=== PATIENT | female | born 1975 | race Caucasian/White ===

== ENCOUNTER 2018-05-17 15:25 | Emergency (ER) | payer MEDICAID ==
[~2018-05-17] VITALS: Ht 157.5 cm; Wt 59.0 kg
[~2018-05-17 15:25] MED LIST: IBUP-1984 PO; QUET-1 PO; SERT50TA PO
[2018-05-17 15:34] VITALS: BP 189/86
[2018-05-17] MEDS ORDERED: ondansetron/PF 4mg/2ml inj IV ONE (16:15)
[2018-05-17] MEDS ORDERED: famotidine/PF 10 mg/ml inj IV ONE (16:15)
[2018-05-17] MEDS ORDERED: ketorolac trometh. 30mg/ml inj. IV ONE (16:15)
[2018-05-17] MEDS ORDERED: normal saline 1000ml 1,000 ML IV ONE (16:15)
[2018-05-17] MEDS ORDERED: dicyclomine 10mg/ml 2ml ampule IM ONE (16:15)
[2018-05-17 16:30] LABS: BASOPHILS % (AUTO) 0.5 % (0-1); EOSINOPHILS # (AUTO) 0.2 X10'3 (0-0.9); EOSINOPHILS % (AUTO) 3.6 % (0-6); HEMATOCRIT 37.3 % (35.0-45.0); HEMOGLOBIN 12.9 g/dl (12.0-16.0); LYMPHOCYTES % (AUTO) 33.1 % (21-51); MEAN CORPUSCULAR HEMOGLOBIN 31.1 PG (27.0-31.0); MEAN CORPUSCULAR HGB CONC 34.6 % (33.0-36.5); MEAN PLATELET VOLUME 8.5 FL (7.4-10.4); MONOCYTES # (AUTO) 0.3 X10'3 (0-0.9); MONOCYTES % (AUTO) 5.2 % (2-12); NEUTROPHILS # (AUTO) 3.4 X10'3 (1.8-7.7); NEUTROPHILS % (AUTO) 57.6 % (42-75); PLATELET COUNT 283 X10'3 (140-440); RED BLOOD COUNT 4.14 X10'6 (4.20-5.60); RED CELL DISTRIBUTION WIDTH 15.1 % (11.5-14.5); WHITE BLOOD COUNT 5.9 X10'3 (4.5-11.0)
[2018-05-17 16:45] LABS: ALANINE AMINOTRANSFERASE 36 U/L (12-78); ALBUMIN 3.6 G/DL (3.4-5.0); ALBUMIN/GLOBULIN RATIO 0.9 (1.1-1.5); ALKALINE PHOSPHATASE 86 IU/L (46-116); ANION GAP 15 (8-16); ASPARTATE AMINO TRANSFERASE 39 U/L (10-37); BILIRUBIN,TOTAL 0.6 MG/DL (0.1-1.0); BLOOD UREA NITROGEN 14 MG/DL (7-18); BUN/CREATININE RATIO 15.2 (6.6-38.0); CALCIUM 8.5 MG/DL (8.5-10.1); CHLORIDE 104 MMOL/L (99-107); CREATININE 0.92 MG/DL (0.40-0.90); GLUCOSE 135 MG/DL (70-104); LIPASE 50 U/L (73-393); MAGNESIUM 1.7 MG/DL (1.5-2.4); POTASSIUM 3.1 MMOL/L (3.5-5.1); SODIUM 140 MMOL/L (135-145); TOTAL CARBON DIOXIDE 21.4 MMOL/L (24-32); TOTAL PROTEIN 7.5 G/DL (6.4-8.2); eGFR 67 ML/MIN
[2018-05-17 17:28] LABS: URINE HCG NEGATIVE (NEG)
[2018-05-17 17:33] LABS: CLARITY,URINE SLIGHTLY CLOUDY (Clear); COLOR,URINE YELLOW (Yellow); GLUCOSE, URINE NEGATIVE (Neg); KETONES,URINE NEGATIVE (Neg); LEUKOCYTE ESTERASE ,URINE TRACE (Neg); NITRITES, URINE POSITIVE (Neg); OCCULT BLOOD,URINE TRACE-LYSED (Neg); PROTEIN,URINE NEGATIVE (Neg); UROBILINOGEN,URINE 0.2 E.U/dL (0.2-1.0)
[2018-05-17 17:52] LABS: UA COLLECTION TYPE CLN CATCH MIDSTREAM
[2018-05-17 17:56] LABS: BACTERIA,URINE 4+ /HPF (Neg); RBC,URINE 0-2 /HPF (0-2); SQUAMOUS EPITHELIAL CELL,UR MODERATE /LPF (FEW)
[2018-05-17] MEDS ORDERED: morphine ER 15mg tablet PO SCH (17:58)
[2018-05-17] MEDS ORDERED: CEPH-572 PO (18:01)
[2018-05-17] MEDS ORDERED: TRAM50TA2 PO (18:01)
[2018-05-17] MEDS ORDERED: CEPH500C5 PO (18:01)
[2018-05-17] MEDS ORDERED: DICY10CA88 PO (18:01)
== END 2018-05-17 18:42 | disposition home or self-care (01) ==
LOC: ER 15:26
DX: K52.9 Noninfective gastroenteritis and colitis, unspecified (principal); E87.6 Hypokalemia; N39.0 Urinary tract infection, site not specified; R10.84 Generalized abdominal pain; F12.90 Cannabis use, unspecified, uncomplicated; F15.90 Other stimulant use, unspecified, uncomplicated; Z56.0 Unemployment, unspecified; Z88.1 Allergy status to other antibiotic agents; Z79.899 Other long term (current) drug therapy
CPT/HCPCS: 36415; 80053; 81001; 81025; 83690; 83735; 85025; 87077; 87088; 87186; 96361; 96372; 96374; 96375; 99284; J0500; J1885; J2405; J3490

== ENCOUNTER 2018-06-30 07:09 | Emergency (ER) | payer MEDICAID ==
[~2018-06-30] VITALS: Ht 157.5 cm; Wt 59.1 kg
[~2018-06-30 07:09] MED LIST changes: +CEPH500C5 PO
[2018-06-30] MEDS ORDERED: pantoprazole 40 MG vial IV ONE (07:20)
[2018-06-30] MEDS ORDERED: ondansetron/PF 4mg/2ml inj IV ONE ×2 (07:20→09:00)
[2018-06-30] MEDS ORDERED: famotidine/PF 10 mg/ml inj IV ONE (07:20)
[2018-06-30] MEDS ORDERED: normal saline 1000ML IV soln IVB ONE (07:20)
[2018-06-30 08:13] LABS: BASOPHILS # (AUTO) 0.1 X10'3 (0-0.2); EOSINOPHILS # (AUTO) 0.1 X10'3 (0-0.9); EOSINOPHILS % (AUTO) 1.3 % (0-6); HEMOGLOBIN 12.6 g/dl (12.0-16.0); LYMPHOCYTES # (AUTO) 1.1 X10'3 (1.1-4.8); LYMPHOCYTES % (AUTO) 20.1 % (21-51); MEAN CORPUSCULAR HEMOGLOBIN 31.5 PG (27.0-31.0); MEAN CORPUSCULAR HGB CONC 33.9 % (33.0-36.5); MEAN CORPUSCULAR VOLUME 92.7 FL (78-98); MEAN PLATELET VOLUME 8.6 FL (7.4-10.4); MONOCYTES # (AUTO) 0.3 X10'3 (0-0.9); MONOCYTES % (AUTO) 5.8 % (2-12); NEUTROPHILS # (AUTO) 3.9 X10'3 (1.8-7.7); NEUTROPHILS % (AUTO) 71.8 % (42-75); PLATELET COUNT 269 X10'3 (140-440); RED BLOOD COUNT 3.99 X10'6 (4.20-5.60); RED CELL DISTRIBUTION WIDTH 13.9 % (11.5-14.5); WHITE BLOOD COUNT 5.4 X10'3 (4.5-11.0)
[2018-06-30 08:35] LABS: ALANINE AMINOTRANSFERASE 49 U/L (12-78); ALBUMIN 3.2 G/DL (3.4-5.0); ALBUMIN/GLOBULIN RATIO 0.9 (1.1-1.5); ALKALINE PHOSPHATASE 72 IU/L (46-116); ANION GAP 10 (8-16); ASPARTATE AMINO TRANSFERASE 61 U/L (10-37); BETA HCG,QUANTITATIVE < 1.0 mIU/ml; BILIRUBIN,TOTAL 0.5 MG/DL (0.1-1.0); BLOOD UREA NITROGEN 11 MG/DL (7-18); BUN/CREATININE RATIO 12.8 (6.6-38.0); CALCIUM 7.6 MG/DL (8.5-10.1); CHLORIDE 106 MMOL/L (99-107); CREATININE 0.86 MG/DL (0.40-0.90); GLUCOSE 111 MG/DL (70-104); LIPASE 64 U/L (73-393); SODIUM 141 MMOL/L (135-145); TOTAL CARBON DIOXIDE 24.8 MMOL/L (24-32); TOTAL PROTEIN 6.7 G/DL (6.4-8.2); eGFR 72 ML/MIN
[2018-06-30 08:41] LABS: POTASSIUM 2.9 MMOL/L (3.5-5.1)
[2018-06-30] MEDS ORDERED: potassium Cl 20 mEq SR tablet PO ONE ×2 (08:45→09:25)
[2018-06-30] MEDS ORDERED: morphine 4 MG/ML inj SYRINge IV ONE ×2 (09:00→10:35)
[2018-06-30] MEDS: magnesium 1gm/100ml D5W IVPB 100 ML IV SCH ×2 (09:31→09:45)
[2018-06-30] MEDS ORDERED: ONDA4TAB9 PO (10:13)
[2018-06-30] MEDS ORDERED: magnesium oxide 400mg tablet PO ONE (10:25)
[2018-06-30] MEDS ORDERED: metoclopramide 5 mg/ml inj IV ONE (10:35)
[2018-06-30 11:25] VITALS: BP 145/92
== END 2018-06-30 11:25 | disposition home or self-care (01) ==
LOC: ER 07:09
DX: E87.6 Hypokalemia (principal); K52.9 Noninfective gastroenteritis and colitis, unspecified; N28.1 Cyst of kidney, acquired; R10.84 Generalized abdominal pain; R10.32 Left lower quadrant pain; F15.90 Other stimulant use, unspecified, uncomplicated; Z56.0 Unemployment, unspecified; Z88.2 Allergy status to sulfonamides; Z88.1 Allergy status to other antibiotic agents
CPT/HCPCS: 36415; 74176; 80053; 83690; 84702; 85025; 96361; 96365; 96375; 96376; 99285; C9113; J2270; J2405; J2765; J3490; J7030

== ENCOUNTER 2018-08-26 11:17 | Emergency (ER) | payer MEDICAID ==
[~2018-08-26] VITALS: Ht 157.5 cm; Wt 63.6 kg
[2018-08-26 12:00] LABS: BASOPHILS % (AUTO) 0.3 % (0-1); EOSINOPHILS # (AUTO) 0.1 X10'3 (0-0.9); EOSINOPHILS % (AUTO) 1.4 % (0-6); HEMATOCRIT 38.7 % (35.0-45.0); HEMOGLOBIN 13.1 g/dl (12.0-16.0); LYMPHOCYTES # (AUTO) 1.4 X10'3 (1.1-4.8); LYMPHOCYTES % (AUTO) 26.1 % (21-51); MEAN CORPUSCULAR HEMOGLOBIN 31.6 PG (27.0-31.0); MEAN CORPUSCULAR HGB CONC 33.8 % (33.0-36.5); MEAN CORPUSCULAR VOLUME 93.5 FL (78-98); MEAN PLATELET VOLUME 8.6 FL (7.4-10.4); MONOCYTES # (AUTO) 0.3 X10'3 (0-0.9); MONOCYTES % (AUTO) 6.2 % (2-12); NEUTROPHILS # (AUTO) 3.7 X10'3 (1.8-7.7); PLATELET COUNT 298 X10'3 (140-440); RED BLOOD COUNT 4.14 X10'6 (4.20-5.60); RED CELL DISTRIBUTION WIDTH 14.5 % (11.5-14.5); WHITE BLOOD COUNT 5.6 X10'3 (4.5-11.0)
[2018-08-26 12:19] LABS: PARTIAL THROMBOPLASTIN TIME 27 SECONDS (22-32)
[2018-08-26 12:31] LABS: ALANINE AMINOTRANSFERASE 47 U/L (12-78); ALBUMIN 3.7 G/DL (3.4-5.0); ALBUMIN/GLOBULIN RATIO 0.9 (1.1-1.5); ALKALINE PHOSPHATASE 98 IU/L (46-116); ANION GAP 14 (8-16); ASPARTATE AMINO TRANSFERASE 34 U/L (10-37); BILIRUBIN,TOTAL 0.2 MG/DL (0.1-1.0); BLOOD UREA NITROGEN 8 MG/DL (7-18); BUN/CREATININE RATIO 12.9 (6.6-38.0); CALCIUM 8.1 MG/DL (8.5-10.1); CHLORIDE 106 MMOL/L (99-107); CREATININE 0.62 MG/DL (0.40-0.90); ETHANOL 0.156 GM/DL (0.0-0.010); GLUCOSE 105 MG/DL (70-104); POTASSIUM 3.3 MMOL/L (3.5-5.1); SODIUM 144 MMOL/L (135-145); TOTAL CARBON DIOXIDE 23.6 MMOL/L (24-32); TOTAL PROTEIN 7.9 G/DL (6.4-8.2); eGFR > 90 ML/MIN
--- NOTE | 2018-08-26 12:42 | NUR ---
PT TOOK OFF ALL OF HER EKG LEADS AND BP CUFF. PT SAID "SORRY TO HAVE TO MAKE YOU WORK FOR YOUR MONEY".
[2018-08-26] MEDS ORDERED: normal saline 1000ML IV soln IVB ONE (12:50)
[2018-08-26] MEDS ORDERED: metoprolol tartrate 1mg/ml inj IV ONE (12:55)
[2018-08-26 14:05] LABS: CLARITY,URINE CLOUDY (Clear); COLOR,URINE STRAW (Yellow); GLUCOSE, URINE NEGATIVE (Neg); KETONES,URINE NEGATIVE (Neg); LEUKOCYTE ESTERASE ,URINE TRACE (Neg); NITRITES, URINE POSITIVE (Neg); OCCULT BLOOD,URINE NEGATIVE (Neg); PROTEIN,URINE NEGATIVE (Neg); UROBILINOGEN,URINE 0.2 E.U/dL (0.2-1.0)
[2018-08-26 14:06] LABS: URINE HCG NEGATIVE (NEG)
[2018-08-26 14:07] LABS: UA COLLECTION TYPE CLN CATCH MIDSTREAM
[2018-08-26 14:16] VITALS: BP 186/116
[2018-08-26 14:16] LABS: BACTERIA,URINE 2+ /HPF (Neg); RBC,URINE 0-2 /HPF (0-2); SQUAMOUS EPITHELIAL CELL,UR FEW /LPF (FEW); WBC,URINE 0-4 /HPF (0-4)
[2018-08-26 14:18] LABS: URINE AMPHETAMINE SCREEN POSITIVE (Neg); URINE BARBITUATE SCREEN NEGATIVE (Neg); URINE BENZODIAZEPINES SCREEN NEGATIVE (Neg); URINE CANNABINOID SCREEN NEGATIVE (Neg); URINE COCAINE SCREEN NEGATIVE (Neg); URINE METHADONE SCREEN NEGATIVE (Neg); URINE OPIATE SCREEN NEGATIVE (Neg); URINE PHENCYCLIDINE SCREEN NEGATIVE (Neg)
[2018-08-26] MEDS ORDERED: lisinopril 10 MG tablet PO ONE (14:20)
[2018-08-26] MEDS ORDERED: LISI10TA4 PO (14:23)
--- NOTE | 2018-08-26 14:29 | NUR ---
LISINOPRIL 10 MG PO DAILY IS WHAT PT. TAKES FOR HTN
--- NOTE | 2018-08-26 15:16 | NUR ---
I WENT IN TO DISCHARGE THE PATIENT AND SHE WAS GONE. PER winter, THE PATIENT RIPPED OUT HER IV AND ALL HER MONITORING AND LEFT. THE PATIENT DID NOT RECEIVE HER DISCHARGE INFORMATION OR HER PRESCRIPTION FOR LISINOPRIL. EARLIER, THE PATIENT STATED THAT SHE IS SUPPOSED TO TAKE BLOOD PRESSURE MEDICATION THAT IS PRESCRIBED BY HER MD AT THE [facility] AND DOES NOT REMEMBER WHEN SHE LAST TOOK HER BP MEDICATION. DR LITTLE AND SECURITY REPROSALBA CASON.
--- NOTE | 2018-08-26 15:18 | NUR ---
pt was seen in waiting room, she back walked in the ER as Security gaurds were walking in and was bleeding out of her left arm i asked pt where she belonged and she said "leave me alone, i'm leaving" i put pressure on pt's arm and applied 2x2 with coban and pt left. dr celis, primary nurse patricia, and charge nurse Yennifer made aware
--- NOTE | 2018-08-26 15:44 | NUR ---
CALLED TO THE AMBULANCE BAY BY [facility] TO TALK TO A PATIENT THAT WAS RECENTLY IN THE ER AND FOR WHOM PRD WAS CALLED BY SOMEONE. I TALKED TO ELSA CORRAL WHO WAS COMPLAINING ABOUT STILL HAVING ANXIETY. I GAVE THE PATIENT HER PRESCRIPTION FOR LISINOPRIL BECAUSE SHE LEFT PRIOR TO DISCHARGE. I REMINDED THE PATIENT OF WHAT THE DOCTOR AND MYSELF TOLD HER ABOUT ANXIETY MEDICATIONS AND ALCOHOL INTOXICATION. THE PATIENT ASKED ABOUT ATIVAN. I DISCUSSED THAT WE CAN NOT GIVE ATIVAN WHEN A PATIENT HAS ALCOHOL ON BOARD. THE PATIENT WAS OFFERED CHOICES. I SUGGESTED THAT SHE RETURN TO THE ER LOBBY AND CHECK IN AGAIN AND GET HER BLOOD PRESSURE TREATED WHICH SHOULD HELP HER ANXIETY IF HER BLOOD PRESSURE IS LOWER. THE PATIENT WAS OFFERED BUS PASSES WELL A RIDE BY [employer] TO [place] WHICH IS CLOSE TO WHERE SHE LIVES. THE PATIENT WAS OFFERED TO WAIT IN THE LOBBY AND USE OUR PHONE TO CALL HER SISTER AGAIN. THE PATIENT HAS A WORKING CELL PHONE. THE PATIENT WAS OFFERED A CAB RIDE TO THE [employer]. THE PATIENT REFUSED ALL OPTIONS OFFERED. CASKET TRIMMER AND DR LITTLE INFORMED OF THE ABOVE SITUATION
== END 2018-08-26 15:28 | disposition home or self-care (01) ==
LOC: ER 11:19
DX: F41.9 Anxiety disorder, unspecified (principal); F19.10 Other psychoactive substance abuse, uncomplicated; I10 Essential (primary) hypertension; F32.9 Major depressive disorder, single episode, unspecified; F20.9 Schizophrenia, unspecified; F15.90 Other stimulant use, unspecified, uncomplicated; F14.90 Cocaine use, unspecified, uncomplicated; Z56.0 Unemployment, unspecified; Z88.2 Allergy status to sulfonamides; Z79.899 Other long term (current) drug therapy
CPT/HCPCS: 36415; 71045; 80053; 80305; 80320; 81001; 81025; 85025; 85610; 85730; 87077; 87088; 87186; 93005; 96374; 99284; J7030; J3490

== ENCOUNTER 2018-09-26 17:19 | Emergency (ER) | payer MEDICAID ==
[~2018-09-26] VITALS: Ht 157.5 cm; Wt 63.6 kg
[~2018-09-26 17:19] MED LIST changes: +LISI10TA4 PO
[2018-09-26] MEDS ORDERED: metoclopramide 5 mg/ml inj IV ONE (18:00)
[2018-09-26] MEDS ORDERED: ketorolac trometh. 30mg/ml inj. IV ONE (18:00)
[2018-09-26] MEDS ORDERED: diphenhydrAMINE 50 mg/ml inj IV ONE (18:00)
[2018-09-26] MEDS ORDERED: normal saline 1000ML IV soln IVB ONE ×2 (18:00)
[2018-09-26 18:02] LABS: BASOPHILS % (AUTO) 0.2 % (0-1); EOSINOPHILS # (AUTO) 0.1 X10'3 (0-0.9); EOSINOPHILS % (AUTO) 1.3 % (0-6); HEMATOCRIT 36.4 % (35.0-45.0); HEMOGLOBIN 12.6 g/dl (12.0-16.0); LYMPHOCYTES # (AUTO) 2.1 X10'3 (1.1-4.8); LYMPHOCYTES % (AUTO) 20.8 % (21-51); MEAN CORPUSCULAR HEMOGLOBIN 31.5 PG (27.0-31.0); MEAN CORPUSCULAR HGB CONC 34.6 g/dL (33.0-36.5); MEAN PLATELET VOLUME 8.3 FL (7.4-10.4); MONOCYTES # (AUTO) 0.5 X10'3 (0-0.9); MONOCYTES % (AUTO) 4.6 % (2-12); NEUTROPHILS # (AUTO) 7.4 X10'3 (1.8-7.7); NEUTROPHILS % (AUTO) 73.1 % (42-75); PLATELET COUNT 273 X10'3 (140-440); RED CELL DISTRIBUTION WIDTH 14.3 % (11.5-14.5); WHITE BLOOD COUNT 10.1 X10'3 (4.5-11.0)
--- NOTE | 2018-09-26 18:03 | NUR ---
PATIENT REFUSES TO GIVE URINE SPEC AT THIS TIME. RUDELY STATES, "I WANT ICE CHIPS". INFORMED PATIENT THAT SHE NEEDS TO HAVE WORK-UP BEFORE HAVING SOMETHING TO DRINK. PATIENT CONTINUES TO BE RUDE WITH NURSE.
[2018-09-26 18:22] LABS: ALANINE AMINOTRANSFERASE 48 U/L (12-78); ALBUMIN 3.7 G/DL (3.4-5.0); ALBUMIN/GLOBULIN RATIO 0.9 (1.1-1.5); ALKALINE PHOSPHATASE 89 IU/L (46-116); ANION GAP 13 (8-16); ASPARTATE AMINO TRANSFERASE 43 U/L (10-37); BILIRUBIN,TOTAL 0.8 MG/DL (0.1-1.0); BLOOD UREA NITROGEN 7 MG/DL (7-18); BUN/CREATININE RATIO 10.3 (6.6-38.0); CALCIUM 8.3 MG/DL (8.5-10.1); CHLORIDE 93 MMOL/L (99-107); CREATININE 0.68 MG/DL (0.40-0.90); GLUCOSE 109 MG/DL (70-104); LIPASE < 50 U/L (73-393); POTASSIUM 3.1 MMOL/L (3.5-5.1); SODIUM 129 MMOL/L (135-145); TOTAL CARBON DIOXIDE 22.7 MMOL/L (24-32); TOTAL PROTEIN 7.6 G/DL (6.4-8.2); eGFR > 90 ML/MIN
[2018-09-26 18:35] LABS: INR 1.1 INR
[2018-09-26 18:53] LABS: URINE HCG NEGATIVE (NEG)
[2018-09-26 18:55] LABS: CLARITY,URINE CLEAR (Clear); COLOR,URINE STRAW (Yellow); GLUCOSE, URINE NEGATIVE (Neg); KETONES,URINE NEGATIVE (Neg); LEUKOCYTE ESTERASE ,URINE TRACE (Neg); NITRITES, URINE NEGATIVE (Neg); OCCULT BLOOD,URINE TRACE-INTACT (Neg); PROTEIN,URINE NEGATIVE (Neg); UROBILINOGEN,URINE 0.2 E.U/dL (0.2-1.0)
[2018-09-26 19:02] LABS: UA COLLECTION TYPE CLN CATCH MIDSTREAM
[2018-09-26 19:03] LABS: BACTERIA,URINE FEW /HPF (Neg); RBC,URINE 0-2 /HPF (0-2); SQUAMOUS EPITHELIAL CELL,UR FEW /LPF (FEW); WBC,URINE 0-4 /HPF (0-4)
[2018-09-26 20:22] VITALS: BP 152/91
[2018-09-26] MEDS ORDERED: POTA20TA19 PO (20:57)
[2018-09-26] MEDS ORDERED: ONDA4TAB12 PO (20:58)
== END 2018-09-26 22:40 | disposition home or self-care (01) ==
LOC: ER 17:20
DX: E87.6 Hypokalemia (principal); R10.12 Left upper quadrant pain; R10.13 Epigastric pain; R11.2 Nausea with vomiting, unspecified; R19.7 Diarrhea, unspecified; I10 Essential (primary) hypertension; F17.210 Nicotine dependence, cigarettes, uncomplicated; F15.90 Other stimulant use, unspecified, uncomplicated; F14.90 Cocaine use, unspecified, uncomplicated; Z56.0 Unemployment, unspecified; Z88.2 Allergy status to sulfonamides; Z88.1 Allergy status to other antibiotic agents; Z79.899 Other long term (current) drug therapy
CPT/HCPCS: 36415; 80053; 81001; 81025; 83690; 85025; 85610; 87077; 87088; 87186; 96361; 96374; 96375; 99283; J1200; J1885; J2765; J7030

== ENCOUNTER 2019-09-08 20:38 | Emergency (ER) | payer MEDICAID, OTHER ==
[~2019-09-08] VITALS: Ht 157.5 cm; Wt 47.0 kg
[~2019-09-08 20:38] MED LIST changes: -CEPH500C5 PO; +ONDA4TAB12 PO
[2019-09-08 21:47] LABS: BASOPHILS % (AUTO) 0.5 % (0-1); EOSINOPHILS # (AUTO) 0.1 X10'3 (0-0.9); EOSINOPHILS % (AUTO) 2.7 % (0-6); LYMPHOCYTES # (AUTO) 1.8 X10'3 (1.1-4.8); LYMPHOCYTES % (AUTO) 33.9 % (21-51); MEAN CORPUSCULAR HEMOGLOBIN 31.6 PG (27.0-31.0); MEAN CORPUSCULAR HGB CONC 34.3 g/dL (33.0-36.5); MEAN CORPUSCULAR VOLUME 92.2 FL (78-98); MEAN PLATELET VOLUME 8.7 FL (7.4-10.4); MONOCYTES # (AUTO) 0.3 X10'3 (0-0.9); NEUTROPHILS % (AUTO) 57.9 % (42-75); PLATELET COUNT 298 X10'3 (140-440); RED CELL DISTRIBUTION WIDTH 14.2 % (11.5-14.5); WHITE BLOOD COUNT 5.2 X10'3 (4.5-11.0)
[2019-09-08 22:01] LABS: ALANINE AMINOTRANSFERASE 32 U/L (12-78); ALBUMIN 3.7 G/DL (3.4-5.0); ALBUMIN/GLOBULIN RATIO 1.1 (1.1-1.5); ALKALINE PHOSPHATASE 96 IU/L (46-116); ANION GAP 8 (8-16); ASPARTATE AMINO TRANSFERASE 17 U/L (10-37); BILIRUBIN,TOTAL 0.1 MG/DL (0.1-1.0); BLOOD UREA NITROGEN 15 MG/DL (7-18); BUN/CREATININE RATIO 18.5 (6.6-38.0); CALCIUM 8.5 MG/DL (8.5-10.1); CHLORIDE 109 MMOL/L (99-107); CREATININE 0.81 MG/DL (0.40-0.90); ETHANOL < 0.010 GM/DL (0.0-0.010); GLUCOSE 107 MG/DL (70-104); POTASSIUM 4.3 MMOL/L (3.5-5.1); SODIUM 143 MMOL/L (135-145); TOTAL CARBON DIOXIDE 25.6 MMOL/L (24-32); TOTAL PROTEIN 7.2 G/DL (6.4-8.2); eGFR 77 ML/MIN
[2019-09-08 22:04] LABS: URINE HCG NEGATIVE (NEG)
[2019-09-08 22:18] LABS: URINE AMPHETAMINE SCREEN NEGATIVE (Neg); URINE BARBITUATE SCREEN NEGATIVE (Neg); URINE BENZODIAZEPINES SCREEN NEGATIVE (Neg); URINE CANNABINOID SCREEN NEGATIVE (Neg); URINE COCAINE SCREEN NEGATIVE (Neg); URINE METHADONE SCREEN NEGATIVE (Neg); URINE OPIATE SCREEN NEGATIVE (Neg); URINE PHENCYCLIDINE SCREEN NEGATIVE (Neg)
[2019-09-08] MEDS ORDERED: LISI10TA4 PO (23:00)
[2019-09-08] MEDS ORDERED: LORazepam 1 MG tablet PO ONE (23:15)
[2019-09-08] MEDS ORDERED: ibuprofen 200mg tablet PO PRN (23:20)
[2019-09-08] MEDS ORDERED: ibuprofen tablet 400 MG TABLET PO PRN (23:20)
--- NOTE | 2019-09-08 23:30 | NUR ---
PT STATED SGE WAS ANXIOUS , SPOKE WITH DR PARRA ABOUT PATIENTS LEVEL OF ANXIETY , PT MOVING AROUND QUICKLY , GAVE PT 1 MG OF ATIVAN PO
--- NOTE | 2019-09-09 00:24 | NUR ---
PT SLEEPING ON HER LEFT SIDE . RESP UNLOBRED WILL CONTINUE TO REASSESS AND MONITOR
--- NOTE | 2019-09-09 01:35 | NUR ---
PT SLEEPING ON HER BACK, RESPIRATIONS UNLABORED, WILL CONTINUE TO REASSESS AND MONITOR .
--- NOTE | 2019-09-09 02:24 | NUR ---
PT SLEEEPING ON HER RIGHT SIDE. RESP UNLABORED AUROSABLE WHEN TOUCHED AND THEN FALLS QUICKLY BACK TO SLEEP WILL CONTINUE TO MONITOR AND REASSESS
--- NOTE | 2019-09-09 03:30 | NUR ---
PT SLEEPING ON HER RIGHT SIDE NO CHNAGES TO PREVIOUS ASSESSMENT WILL CONTINUE TO MONITOR AND REASSESS
--- NOTE | 2019-09-09 04:36 | NUR ---
PT SLEEPING PEACFULLY ON HER BACK RESP UNLABORED WILL CONTINUE TO MONITOR AND REASSESS NEEDED
--- NOTE | 2019-09-09 04:45 | NUR ---
DIET ORDER REFAXED TO DIETARY ONCE ORDER WAS PLACED
--- NOTE | 2019-09-09 05:40 | NUR ---
PT ASLEEP , RESP UNLABORED WILL CONTINUE TO MONITOR AND REASSESS
--- NOTE | 2019-09-09 05:40 | NUR ---
PACKET FAXED TO [facility]
[2019-09-09] MEDS ORDERED: lisinopril 10 MG tablet PO SCH (08:00)
--- NOTE | 2019-09-09 08:25 | NUR ---
DR ROSADO AT BEDSIDE FOR AM EVALUATION. SAFETY BREAKFAST TRAY DELIVERED TO BEDSIDE, PT EATING
--- NOTE | 2019-09-09 10:46 | NUR ---
Preaking Primary RN, pt is supine in bed awake and aware, calm no agitation observed
--- NOTE | 2019-09-09 12:32 | NUR ---
Breaking Primary RN, pt is supine in bed, eyes closed, regular breathing observed, appears to be sleeping
[2019-09-09] MEDS ORDERED: LORazepam 1 MG tablet PO ONE (13:55)
--- NOTE | 2019-09-09 15:09 | NUR ---
[facility] CALLED FOR NURSE TO NURSE REPORT, WILL PRESENT TO PROVIDER AND WILL CALL BACK IF ACCEPTED
[2019-09-09 16:25] LABS: CLARITY,URINE TURBID (Clear); COLOR,URINE YELLOW (Yellow); GLUCOSE, URINE NEGATIVE (Neg); KETONES,URINE 15 mg/dl (Neg); LEUKOCYTE ESTERASE ,URINE SMALL (Neg); NITRITES, URINE NEGATIVE (Neg); OCCULT BLOOD,URINE NEGATIVE (Neg); PROTEIN,URINE NEGATIVE (Neg); UROBILINOGEN,URINE 0.2 E.U/dL (0.2-1.0)
--- NOTE | 2019-09-09 16:25 | NUR ---
pt requested crackers and juice, it was obtained for her
[2019-09-09 16:31] LABS: UA COLLECTION TYPE CLN CATCH MIDSTREAM
[2019-09-09 16:34] LABS: AMORPHOUS URATES 4+
[2019-09-09 16:35] LABS: SQUAMOUS EPITHELIAL CELL,UR MANY /LPF (FEW)
[2019-09-09 16:36] LABS: MUCUS STRANDS NONE SEEN /LPF (Neg); TRANSITIONAL EPI CELLS,URINE FEW /HPF
[2019-09-09 16:39] LABS: WBC,URINE 0-4 /HPF (0-4)
[2019-09-09 16:40] LABS: BACTERIA,URINE FEW /HPF (Neg); URIC ACID CRYSTALS 2+ /HPF (NEGATIVE)
--- NOTE | 2019-09-09 17:22 | NUR ---
[facility] CALLED AND REQUESTED A TSH AND UA. LABS ORDERED ADD ONS AND RESULTS FAXED TO [facility]
--- NOTE | 2019-09-09 17:25 | NUR ---
pt is supine in bed, eyes open, no s/s of agitation observed
[2019-09-09 17:56] VITALS: BP 100/49
--- NOTE | 2019-09-09 19:06 | NUR ---
PT ATE DINNER. APPEARS TO BE SLEEPING ON LEFT SIDE, RR EVEN AND UNLABORED
--- NOTE | 2019-09-09 20:06 | NUR ---
PT ASLEEP ON LEFT SIDE, RR EVEN AND UNLABORED.
[2019-09-09] MEDS ORDERED: quetiapine 100mg tablet PO SCH (21:00)
[2019-09-09] MEDS ORDERED: sertraline 50mg tablet PO SCH (21:00)
--- NOTE | 2019-09-09 21:38 | NUR ---
PT HAS NO NEEDS AT TIME OF MED PASS. PT AMBULATED TO BATHROOM. PT NOW LYING IN BED
== END 2019-09-09 22:02 ==
LOC: ER 20:39
DX: F32.9 Major depressive disorder, single episode, unspecified (principal); F41.9 Anxiety disorder, unspecified; I10 Essential (primary) hypertension; F20.9 Schizophrenia, unspecified; F15.90 Other stimulant use, unspecified, uncomplicated; F14.90 Cocaine use, unspecified, uncomplicated; Z56.0 Unemployment, unspecified; Z88.2 Allergy status to sulfonamides; Z88.1 Allergy status to other antibiotic agents; Z79.899 Other long term (current) drug therapy
CPT/HCPCS: 36415; 80053; 80305; 80320; 81001; 81025; 84443; 85025; 87077; 87088; 87186; 99285

== ENCOUNTER 2020-12-12 10:35 | Emergency (ER) | payer MEDICAID, OTHER ==
[~2020-12-12] VITALS: Ht 157.5 cm; Wt 58.4 kg
[~2020-12-12 10:35] MED LIST changes: +LISI10TA27 PO; -LISI10TA4 PO; -ONDA4TAB12 PO
[2020-12-12 11:38] LABS: BASOPHILS % (AUTO) 1.2 % (0-1); EOSINOPHILS # (AUTO) 0.1 X10'3 (0-0.9); EOSINOPHILS % (AUTO) 3.2 % (0-6); HEMATOCRIT 35.4 % (35.0-45.0); HEMOGLOBIN 11.8 g/dl (12.0-16.0); LYMPHOCYTES # (AUTO) 1.8 X10'3 (1.1-4.8); LYMPHOCYTES % (AUTO) 47.5 % (21-51); MEAN CORPUSCULAR HEMOGLOBIN 30.2 PG (27.0-31.0); MEAN CORPUSCULAR HGB CONC 33.2 g/dL (33.0-36.5); MEAN CORPUSCULAR VOLUME 91.1 FL (78-98); MEAN PLATELET VOLUME 7.9 FL (7.4-10.4); MONOCYTES # (AUTO) 0.3 X10'3 (0-0.9); MONOCYTES % (AUTO) 8.3 % (2-12); NEUTROPHILS # (AUTO) 1.5 X10'3 (1.8-7.7); NEUTROPHILS % (AUTO) 39.8 % (42-75); PLATELET COUNT 284 X10'3 (140-440); RED BLOOD COUNT 3.89 X10'6 (4.20-5.60); RED CELL DISTRIBUTION WIDTH 13.7 % (11.5-14.5); WHITE BLOOD COUNT 3.7 X10'3 (4.5-11.0)
[2020-12-12 11:52] LABS: ALANINE AMINOTRANSFERASE 20 U/L (12-78); ALBUMIN 3.7 G/DL (3.4-5.0); ALKALINE PHOSPHATASE 92 IU/L (46-116); ANION GAP 11 (8-16); ASPARTATE AMINO TRANSFERASE 17 U/L (10-37); BILIRUBIN,TOTAL 0.1 MG/DL (0.1-1.0); BLOOD UREA NITROGEN 15 MG/DL (7-18); BUN/CREATININE RATIO 25.4 (6.6-38.0); CALCIUM 8.2 MG/DL (8.5-10.1); CHLORIDE 108 MMOL/L (99-107); CREATININE 0.59 MG/DL (0.40-0.90); GLUCOSE 103 MG/DL (70-104); POTASSIUM 4.1 MMOL/L (3.5-5.1); SODIUM 143 MMOL/L (135-145); TOTAL CARBON DIOXIDE 24.2 MMOL/L (24-32); TOTAL PROTEIN 7.3 G/DL (6.4-8.2); eGFR > 90 ML/MIN
[2020-12-12 12:01] LABS: ETHANOL 0.059 GM/DL (0.0-0.010)
--- NOTE | 2020-12-12 12:01 | NUR ---
PT MOVED FROM 17 TO BED 22
[2020-12-12] MEDS ORDERED: sertraline 50mg tablet PO ONE (12:10)
[2020-12-12 12:31] LABS: CLARITY,URINE SLIGHTLY CLOUDY (Clear); COLOR,URINE STRAW (Yellow); GLUCOSE, URINE NEGATIVE (Neg); KETONES,URINE NEGATIVE (Neg); LEUKOCYTE ESTERASE ,URINE NEGATIVE (Neg); NITRITES, URINE NEGATIVE (Neg); OCCULT BLOOD,URINE LARGE (Neg); PROTEIN,URINE NEGATIVE (Neg); UROBILINOGEN,URINE 0.2 E.U/dL (0.2-1.0)
[2020-12-12 12:32] LABS: URINE HCG NEGATIVE (NEG)
[2020-12-12 12:34] LABS: UA COLLECTION TYPE CLN CATCH MIDSTREAM
[2020-12-12 12:44] LABS: BACTERIA,URINE 2+ /HPF (Neg); SQUAMOUS EPITHELIAL CELL,UR MANY /LPF (FEW); WBC,URINE 0-4 /HPF (0-4)
[2020-12-12 12:46] LABS: URINE AMPHETAMINE SCREEN POSITIVE (Neg); URINE BARBITUATE SCREEN NEGATIVE (Neg); URINE BENZODIAZEPINES SCREEN NEGATIVE (Neg); URINE CANNABINOID SCREEN NEGATIVE (Neg); URINE COCAINE SCREEN NEGATIVE (Neg); URINE METHADONE SCREEN NEGATIVE (Neg); URINE OPIATE SCREEN NEGATIVE (Neg); URINE PHENCYCLIDINE SCREEN NEGATIVE (Neg)
[2020-12-12] MEDS ORDERED: HYDR-3686 PO (12:51)
[2020-12-12] MEDS ORDERED: APIX5TAB3 PO (12:51)
[2020-12-12] MEDS ORDERED: BUSP5TAB3 PO (12:52)
--- NOTE | 2020-12-12 13:17 | NUR ---
Recieved Pt in calmly reading and in no distress.
--- NOTE | 2020-12-12 15:30 | NUR ---
Pt seen by [facility] and placed on 5150 hold. Pt used bathroom two times and c/o diarhea. She returned to bed and fell asleep.
[2020-12-12] MEDS ORDERED: loperamide 2mg capsule PO ONE (16:35)
--- NOTE | 2020-12-12 17:12 | NUR ---
Pt med rec completed and pt given imodium X1. Pt remains in bed and has returned to sleep. [facility] called and stated they may be accepting her.
--- NOTE | 2020-12-12 19:12 | NUR ---
One to one with the patient to assess for severity of depressive symptoms and self harm risk. She continues to report suicidal thoughts but denies a plan. She denies being irritable but she was yelling at another patient to shut up and she was irritable when answering assessment questions. She denies AV hallucinations. She denies significant ETOH abuse or hx of withdrawals. When asked about amphetamine abuse she reports that she has been using the past two days.
--- NOTE | 2020-12-12 19:14 | NUR ---
The patient is pending transfer to [facility].
[2020-12-12] MEDS ORDERED: apixaban 5mg tablet PO SCH (20:00)
[2020-12-12 20:39] VITALS: BP 118/77
[2020-12-12] MEDS ORDERED: sertraline 50mg tablet PO SCH (21:00)
[2020-12-13] MEDS ORDERED: hydrOXYzine 25 MG tablet PO SCH
[2020-12-13] MEDS ORDERED: lisinopril 10 MG tablet PO SCH (08:00)
[2020-12-13] MEDS ORDERED: busPIRone 5mg tablet PO SCH (08:00)
== END 2020-12-12 20:41 ==
LOC: ER 10:36
DX: R45.851 Suicidal ideations (principal); F10.129 Alcohol abuse with intoxication, unspecified; F32.9 Major depressive disorder, single episode, unspecified; I10 Essential (primary) hypertension; F41.9 Anxiety disorder, unspecified; F20.9 Schizophrenia, unspecified; F17.200 Nicotine dependence, unspecified, uncomplicated; F15.90 Other stimulant use, unspecified, uncomplicated; F14.90 Cocaine use, unspecified, uncomplicated; Z87.440 Personal history of urinary (tract) infections; Z86.718 Personal history of other venous thrombosis and embolism; Z72.89 Other problems related to lifestyle; Z56.0 Unemployment, unspecified; Z88.2 Allergy status to sulfonamides; Z88.1 Allergy status to other antibiotic agents; Z79.899 Other long term (current) drug therapy; Y90.0 Blood alcohol level of less than 20 mg/100 ml
CPT/HCPCS: 36415; 80053; 80305; 80320; 81001; 81025; 84443; 85025; 99285

== ENCOUNTER 2020-12-12 17:56 | Inpatient (IN) | payer MEDICAID ==
[~2020-12-12] VITALS: Ht 157.5 cm; Wt 58.3 kg
[~2020-12-12 17:56] MED LIST changes: +APIX5TAB3 PO; +BUSP5TAB3 PO; +HYDR-3686 PO
[2020-12-12] MEDS ORDERED: mag hydrox/Alum hydrox/simeth 30ml oral suspension PO PRN (20:55)
[2020-12-12] MEDS ORDERED: acetaminophen 325mg tablet PO PRN ×2 (20:55)
[2020-12-12] MEDS ORDERED: loperamide 2mg capsule PO PRN (20:55)
[2020-12-12] MEDS ORDERED: magnesium hydroxide 30ml (MOM) UD suspension PO PRN (20:55)
[2020-12-12 22:27] VITALS: BP 141/82
[2020-12-13] MEDS ORDERED: hydrOXYzine 25 MG tablet PO SCH
--- NOTE | 2020-12-13 05:08 | NUR ---
Admit Note: Pt admitted on a 5150 for dts. Pt self presented to ED reporting suicidal ideation, with a plan to cut herself. Pt had a miscarriage in 2019 and hx of depression. Pt has hx of suicide attempts and inpatient psych hospitalizations. Pt reported using alcohol daily and meth two days ago. pt was cooperative and friendly for all assessments.
[2020-12-13 07:41] VITALS: BP 120/74
[2020-12-13 07:42] LABS: HEMOGLOBIN A1C 5.3 % (4.5-6.2)
[2020-12-13 07:50] LABS: CHOL/HDL RATIO 2.5 (0.00-4.99); CHOLESTEROL 147 MG/DL (0-200); HDL CHOLESTEROL 59 MG/DL (35-60); LDL CHOLESTEROL 73 MG/DL (50-100); TRIGLYCERIDES 109 MG/DL (20-135)
[2020-12-13] MEDS ORDERED: busPIRone 5mg tablet PO SCH (08:00)
[2020-12-13] MEDS: apixaban 5mg tablet PO SCH ×2 (08:31→20:14)
[2020-12-13] MEDS: lisinopril 10 MG tablet PO SCH (08:31)
--- NOTE | 2020-12-13 15:01 | NUR ---
Nursing Progress Note: Legal hold: 5150 Client on voluntary/involuntary status for DTS Report received from nurse with use of LUCIANA Acosta RN Why are they here: Pt admitted on a 5150 for DTS. Pt self presented to ED reporting suicidal ideation, with a plan to cut herself. Pt had a miscarriage in 2019 and hx of depression. Pt has hx of suicide attempts and inpatient psych hospitalizations. Pt reported using alcohol daily and meth two days ago. Assessment What has happened this shift: Pt declined to get up for breakfast stating that she wasn't hungry and she usually doesn't eat breakfast. Pt did get up for lunch. Pt is isolative to self and room. Pt spends her time reading in bed. Pt is still endorsing depression with passive SI. Pt stated that she had thoughts of not wanting to be alive this morning. Pt contracts for safety here. Pt rated her anxiety at a 4/10 but has been able to manage it with distraction techniques like reading today. Pt states she'll let this nurse know if her anxiety gets any worse. S/I, H/I: Pt denies HI, +SI; no plan. A/VH: Pt denies Sleep: Pt slept 7.25 hours last night per noc shift report. ADL's: Independent Group attendance: No Were meds taken: Yes Any med S/E: None noted or reported. Mental Status Exam Appearance: Clean, neat, dark skinned woman with long dark-reddish hair and long painted fingernails dressed in personal clothing. Pt recently colored her hair, red coloring has worn off on her pillowcase. Eye contact: Good. Behavior: Cooperative, reads, isolative to self and room. Speech: Clear, audible Mood: Depressed, anxious Affect: Blunted Thought process: Linear Thought Content: She does not like eating in the crowded dining room. Cognition: A/O X 4 Insight: Fair Judgment: Fair Interventions PRN's used: None Therapeutic interventions: 1:1 assessment, establishment of rapport, ensured contract for safety, therapeutic communication, active listening, encouraged pt to come to the dining room for meals, encouragement to attend groups, distraction, provided positive reinforcement, Q 15 minute safety checks. Restraints/seclusion/emergency medication: None Justification of Continued Inpatient Treatment: Pt is depressed and endorsing SI. Pt needs crisis interruption with medication adjustment and management in a safe and therapeutic environment until stable.
[2020-12-13 19:44] VITALS: BP 122/66
[2020-12-13] MEDS: sertraline 50mg tablet PO SCH (20:14)
[2020-12-13] MEDS: hydrOXYzine 25 MG tablet PO PRN (20:14)
[2020-12-13] MEDS ORDERED: sertraline 50mg tablet PO SCH (21:00)
[2020-12-13] MEDS: traZODone 50mg tablet PO PRN (21:40)
[2020-12-13] MEDS: busPIRone 5mg tablet PO SCH (21:40)
--- NOTE | 2020-12-14 01:15 | NUR ---
Nursing Progress Note: Legal hold: 5150 Client on involuntary status for DTS Report received from nurse with use of LUCIANA Schroeder RN Why are they here: Pt admitted on a 5150 for DTS. Pt self presented to ED reporting suicidal ideation, with a plan to cut herself. Pt had a miscarriage in 2019 and hx of depression. Pt has hx of suicide attempts and inpatient psych hospitalizations. Pt reported using alcohol daily and meth two days ago. Assessment What has happened this shift: Pt was in bed at change of shift, isolates to her room and is reading a book. Pt c/o feeling anxious. Pt was given prn atarax with HS meds and requested melatonin for a sleep aid. Pt was offered prn trazodone to help with sleep and took trazodone before going to bed. S/I, H/I: passive s/i w/no plan, denies h/i A/VH: Pt denies Sleep: see sleep hours ADL's: Independent Group attendance: No Were meds taken: Yes Any med S/E: None noted or reported. Mental Status Exam Appearance: adequately groomed, wearing green scrubs Eye contact: Good. Behavior: Cooperative, reads, isolative to self and room. Speech: Clear, audible Mood: Depressed, anxious Affect: Blunted Thought process: Linear Thought Content: States she is feeling better "I was just having problems when I came in but Im doing better now) Cognition: A/O X 4 Insight: Fair Judgment: Fair Interventions PRN's used: trazodone Therapeutic interventions: 1:1 assessment, establishment of rapport, ensured contract for safety, therapeutic communication, active listening, encouraged pt to come to the dining room for meals, encouragement to attend groups, distraction, provided positive reinforcement, Q 15 minute safety checks. Restraints/seclusion/emergency medication: None Justification of Continued Inpatient Treatment: Pt is depressed and endorsing SI. Pt needs crisis interruption with medication adjustment and management in a safe and therapeutic environment until stable.
[2020-12-14 07:59] VITALS: BP 90/44
[2020-12-14] MEDS: lisinopril 10 MG tablet PO SCH (08:00)
[2020-12-14] MEDS: apixaban 5mg tablet PO SCH ×2 (08:09→20:12)
[2020-12-14] MEDS: busPIRone 5mg tablet PO SCH ×3 (08:09→20:11)
--- NOTE | 2020-12-14 13:58 | NUR ---
Nursing Progress Note: Legal hold: 5150 Client on voluntary/involuntary status for DTS Report received from nurse with use of LUCIANA Acosta RN Why are they here: Pt admitted on a 5150 for DTS. Pt self presented to ED reporting suicidal ideation, with a plan to cut herself. Pt had a miscarriage in 2019 and hx of depression. Pt has hx of suicide attempts and inpatient psych hospitalizations. Pt reported using alcohol daily and meth two days ago. Assessment What has happened this shift: Pt skipped breakfast again today. She was pleasant and cooperative with her scheduled medications. Held lisinopril 10 mg this morning for a low BP of 90/44, HR was 65. Encouraged pt to drink more water and notified PA Popeye of BP and med being held. Pt rated her depression today at a 7/10, she denied SI stating "no, I've just been sleeping." When asked about her anxiety level, pt stated, "I'm okay for now." Pt continues to be isolative to self and room. She spends most of her time reading in bed. No unsafe behaviors noted. S/I, H/I: Pt denies. A/VH: Pt denies. Sleep: Pt slept 7.5 hours last night per noc shift report. ADL's: Independent Group attendance: No Were meds taken: Yes Any med S/E: None noted or reported. Mental Status Exam Appearance: Clean, neat, dark skinned woman with long dark-reddish hair and long painted fingernails dressed in personal clothing. Eye contact: Good. Behavior: Pleasant, cooperative, reads, isolative to self and room. Speech: Clear, audible, minimal. Mood: Depressed Affect: Blunted Thought process: Linear Thought Content: Just wants to read and sleep. Cognition: A/O X 4 Insight: Fair Judgment: Fair Interventions PRN's used: None Therapeutic interventions: 1:1 assessment, establishment of rapport, ensured contract for safety, therapeutic communication, active listening, encouraged pt to come to the dining room for meals, encouragement to attend groups, distraction, provided positive reinforcement, Q 15 minute safety checks. Restraints/seclusion/emergency medication: None Justification of Continued Inpatient Treatment: Pt is depressed and endorsing SI. Pt needs crisis interruption with medication adjustment and management in a safe and therapeutic environment until stable.
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
--- NOTE | 2020-12-14 18:32 | NUR ---
CM Presenting Issues: Pt admitted to [facility] following 5150 due to DTS concerns after reporting increased SI in the ER. Since her admission, pt's resumed her medication and attending PA request SS support w/dcp. Interventions: SS had t/c w/pt's sister/Sonia [phone] and engaged her in pre-dcp activities. Per t/c Sonia is not able to support pt at this time. SS met w/pt and engaged her in dcp activities, suggests that pt utilize the services at the [facility] ([employer]) pt declined referrals to [facility]. When asked if she would like to try and see if she can access inpatient substance use programs, pt declined offer. When asked what options pt has, pt replied, "I always manage to figure something out". Plan: Pt will d/c tomorrow, if she is agreeable to go to the [facility] cab will be called to provide transport to the [facility]. Lisa Gomez LCSW Addendum: 12/14/20 at 1840 by Lisa Gomez SS Amended: Links added.
[2020-12-14] MEDS: traZODone 50mg tablet PO PRN (20:12)
[2020-12-14] MEDS: sertraline 50mg tablet PO SCH (20:12)
[2020-12-14 20:24] VITALS: BP 106/60
--- NOTE | 2020-12-14 22:34 | NUR ---
Nursing Progress Note: Legal hold: 5150 Client on voluntary/involuntary status for DTS Report received from nurse with use of LUCIANA Cage RN Why are they here: Pt admitted on a 5150 for DTS. Pt self presented to ED reporting suicidal ideation, with a plan to cut herself. Pt had a miscarriage in 2019 and hx of depression. Pt has hx of suicide attempts and inpatient psych hospitalizations. Pt reported using alcohol daily and meth two days ago. Assessment What has happened this shift: Pt was up in the rec room having dinner at change of shift. She spent time out of her room watching tv and had snacks in the group room. Pt returned to her room to read before HS meds. Pt is med compliant, reports no needs at this time. S/I, H/I: Pt denies. A/VH: Pt denies. Sleep: see sleep hours ADL's: Independent Group attendance: No Were meds taken: Yes Any med S/E: None noted or reported. Mental Status Exam Appearance: Pt is adequately groomed and dressed wearing green scrubs Eye contact: Good. Behavior: Pleasant, cooperative, reads, isolative to self Speech: Clear, audible, minimal. Mood: Depressed Affect: blunted Thought process: Linear Thought Content: Just wants to read and sleep. Cognition: A/O X 4 Insight: Fair Judgment: Fair Interventions PRN's used: None Therapeutic interventions: 1:1 assessment, establishment of rapport, ensured contract for safety, therapeutic communication, active listening, encouraged pt to come to the dining room for meals, encouragement to attend groups, distraction, provided positive reinforcement, Q 15 minute safety checks. Restraints/seclusion/emergency medication: None Justification of Continued Inpatient Treatment: Pt is depressed and endorsing SI. Pt needs crisis interruption with medication adjustment and management in a safe and therapeutic environment until stable.
[2020-12-15 07:35] VITALS: BP 93/45
[2020-12-15 07:36] VITALS: BP 93/45
[2020-12-15] MEDS: lisinopril 10 MG tablet PO SCH (08:00)
[2020-12-15] MEDS: apixaban 5mg tablet PO SCH ×2 (08:07→20:17)
[2020-12-15] MEDS: busPIRone 5mg tablet PO SCH ×3 (08:07→20:18)
--- NOTE | 2020-12-15 08:55 | NUR ---
Initial: Pt admit for depression with SI. Pt on a regular diet documented with 75-100% PO intake though is refusing breakfasts. Per RN notes pt reports she normally doesn't eat breakfast. LBM 12/15. No documented edema or wounds. No nutrition diagnosis at this time. Will continue to follow. Recommendations: 1) Continue regular diet 2) Bowel care per rx 3) Weekly scaled weights Addendum: 12/15/20 at [address] Amended: Links added.
[2020-12-15] MEDS: hydrOXYzine 25 MG tablet PO PRN (13:48)
--- NOTE | 2020-12-15 14:39 | NUR ---
Nursing Progress Note: Legal hold: Voluntary Client on voluntary status Report received from nurse with use of LUCIANA Acosta RN Why are they here: Pt admitted on a 5150 for DTS. Pt self presented to ED reporting suicidal ideation, with a plan to cut herself. Pt had a miscarriage in 2019 and hx of depression. Pt has hx of suicide attempts and inpatient psych hospitalizations. Pt reported using alcohol daily and meth two days ago. Assessment What has happened this shift: Pt was up for breakfast today. Her Lisinopril 10 mg was held again today for a decreased BP of 97/50 on her right arm and 93/45 on her left arm. Her HR was 60. Pt rated her depression today at a 6 1/2. She reported some intermittent passive SI this morning, "I had a few thoughts this morning." Pt asked for something for anxiety after lunch. She rated her anxiety level at a 4/10. PRN Atarax 25 mg was given with good effect. Pt signed in as voluntary today. S/I, H/I: Pt denies. A/VH: Pt denies. Sleep: Pt slept 8.75 hours last night per noc shift report. ADL's: Independent Group attendance: No Were meds taken: Yes Any med S/E: None noted or reported. Mental Status Exam Appearance: Clean, neat, dark skinned woman with long dark-reddish hair and long painted fingernails dressed in green unit scrubs. Eye contact: Good. Behavior: Pleasant, cooperative, reads, isolative to self and room. Speech: Clear, audible, minimal. Mood: Depressed, anxious Affect: Blunted, anhedonic Thought process: Linear Thought Content: She is staying a couple more days voluntarily. Cognition: A/O X 4 Insight: Fair Judgment: Fair Interventions PRN's used: Atarax 25 mg Therapeutic interventions: 1:1 assessment, establishment of rapport, ensured contract for safety, therapeutic communication, active listening, encouraged pt to come to the dining room for meals, encouragement to attend groups, distraction, provided positive reinforcement, Q 15 minute safety checks. Restraints/seclusion/emergency medication: None Justification of Continued Inpatient Treatment: Pt is depressed and endorsing SI. Pt needs crisis interruption with medication adjustment and management in a safe and therapeutic environment until stable.
[2020-12-15] MEDS: LORazepam 1 MG tablet PO PRN (18:22)
[2020-12-15 19:21] VITALS: BP 100/54
[2020-12-15 19:25] VITALS: BP 100/54
[2020-12-15] MEDS: sertraline 50mg tablet PO SCH (20:18)
[2020-12-15] MEDS: traZODone 50mg tablet PO PRN (20:18)
--- NOTE | 2020-12-16 03:04 | NUR ---
Nursing Progress Note: Legal hold: Voluntary Client on voluntary status Report received from ROSALBA Still with use of SBAR. Why are they here: Pt admitted on a 5150 for DTS. Pt self presented to ED reporting suicidal ideation, with a plan to cut herself. Pt had a miscarriage in 2019 and hx of depression. Pt has hx of suicide attempts and inpatient psych hospitalizations. Pt reported using alcohol daily and meth two days ago. Assessment What has happened this shift: Pt received lying in bed and in no apparent distress. Per VS sheet, pt rated pain 5/10, all over. When accessed by this RN, pt stated she had no pain and wanted an apple juice, which was given. Pt found in day room for medication pass. Pt took medications and confirmed with this RN which medications were in the cup. She then returned to chair to watch television for about 30 minutes. Pt slept well. All needs met, will continue to monitor. S/I, H/I: Pt denies. A/VH: Pt denies. Sleep: Pt slept 10 hours. ADL's: Independent Group attendance: N/A Were meds taken: Yes Any med S/E: None noted or reported. Mental Status Exam Appearance: Clean, neat, dark skinned woman with long dark-reddish hair and long painted fingernails dressed in green unit scrubs. Eye contact: Good. Behavior: Pleasant, cooperative, reads, isolative to self and room. Speech: Clear, audible, minimal. Mood: Depressed, anxious Affect: Blunted, anhedonic Thought process: Linear Thought Content: She is staying a couple more days voluntarily. Cognition: A/O X 4 Insight: Fair Judgment: Fair Interventions PRN's used: Trazadone. Therapeutic interventions: 1:1 assessment, establishment of rapport, ensured contract for safety, therapeutic communication, active listening, encouraged pt to come to the dining room for meals, encouragement to attend groups, distraction, provided positive reinforcement, Q 15 minute safety checks. Restraints/seclusion/emergency medication: None Justification of Continued Inpatient Treatment: Pt is depressed and endorsing SI. Pt needs crisis interruption with medication adjustment and management in a safe and therapeutic environment until stable.
[2020-12-16 07:36] VITALS: BP 91/48
[2020-12-16] MEDS: lisinopril 10 MG tablet PO SCH ×2 (08:00→08:01)
[2020-12-16] MEDS: apixaban 5mg tablet PO SCH ×2 (08:00→20:45)
[2020-12-16] MEDS: busPIRone 5mg tablet PO SCH ×3 (08:00→20:45)
[2020-12-16] MEDS: LORazepam 1 MG tablet PO PRN (12:32)
--- NOTE | 2020-12-16 14:14 | NUR ---
Pt attended [facility] today. SS- Samantha Dupont, ALDO
--- NOTE | 2020-12-16 16:58 | NUR ---
Nursing Progress Note: Legal hold: Voluntary Client on voluntary status Report received from nurse with use of LUCIANA Steinberg RN Why are they here: Pt admitted on a 5150 for DTS. Pt self presented to ED reporting suicidal ideation, with a plan to cut herself. Pt had a miscarriage in 2019 and hx of depression. Pt has hx of suicide attempts and inpatient psych hospitalizations. Pt reported using alcohol daily and meth two days ago. Assessment What has happened this shift: Pt was up for breakfast today. Her Lisinopril 10 mg was held again today for a decreased BP of 91/48. Her HR was 69. Pt rated her depression today at a 7 She reported some intermittent passive SI this morning, Pt asked for something for anxiety after lunch, patient wanted something more than Atarax, Ativan 1mg given @ 1230. It should be know that there was a disturbance on the unit. One hour later patint stated that is was very helpful. S/I, H/I: can not contract for safety A/VH: Pt denies. Sleep: Pt slept 8 hours last night per noc shift report. ADL's: Independent Group attendance: No Were meds taken: Yes Any med S/E: None noted or reported. Mental Status Exam Appearance: Clean, neat, dark skinned woman with long dark-reddish hair and long painted fingernails dressed in green unit scrubs. Eye contact: Good. Behavior: Pleasant, cooperative, reads, isolative to self and room. Speech: Clear, audible, minimal. Mood: Depressed, anxious Affect: Blunted, anhedonic Thought process: Linear Thought Content: She is staying a couple more days voluntarily. Cognition: A/O X 4 Insight: Fair Judgment: Fair Interventions PRN's used: Ativan 1 mg Therapeutic interventions: 1:1 assessment, establishment of rapport, ensured contract for safety, therapeutic communication, active listening, encouraged pt to come to the dining room for meals, encouragement to attend groups, distraction, provided positive reinforcement, Q 15 minute safety checks. Restraints/seclusion/emergency medication: None Justification of Continued Inpatient Treatment: Pt is depressed and endorsing SI. Pt needs crisis interruption with medication adjustment and management in a safe and therapeutic environment until stable.
[2020-12-16] MEDS: hydrOXYzine 25 MG tablet PO PRN (18:21)
[2020-12-16 19:33] VITALS: BP 104/64
[2020-12-16] MEDS: sertraline 50mg tablet PO SCH (20:45)
[2020-12-16] MEDS: traZODone 50mg tablet PO PRN (20:45)
--- NOTE | 2020-12-17 03:08 | NUR ---
Nursing Progress Note: Legal hold: Voluntary Client on voluntary status Report received from ROSALBA Still with use of SBAR. Why are they here: Pt admitted on a 5150 for DTS. Pt self presented to ED reporting suicidal ideation, with a plan to cut herself. Pt had a miscarriage in 2019 and hx of depression. Pt has hx of suicide attempts and inpatient psych hospitalizations. Pt reported using alcohol daily and meth two days ago. Assessment What has happened this shift: Pt received lying in bed and in no apparent distress. Pt found in room for medication pass. Pt took medications and confirmed with this RN which medications were in the cup. She then went to day room and had snacks, while watching tv. Pt slept well. All needs met, will continue to monitor. S/I, H/I: Pt denies, states "not right now" A/VH: Pt denies. Sleep: Pt slept 10 hours. ADL's: Independent Group attendance: N/A Were meds taken: Yes Any med S/E: None noted or reported. Mental Status Exam Appearance: Clean, neat, dark skinned woman with long dark-reddish hair and long painted fingernails dressed in green unit scrubs. Eye contact: Good. Behavior: Pleasant, cooperative, reads, isolative to self and room. Speech: Clear, audible, minimal. Mood: Depressed, anxious Affect: Blunted, anhedonic Thought process: Linear Thought Content: She is staying a couple more days voluntarily. Cognition: A/O X 4 Insight: Fair Judgment: Fair Interventions PRN's used: Trazadone. Therapeutic interventions: 1:1 assessment, establishment of rapport, ensured contract for safety, therapeutic communication, active listening, encouraged pt to come to the dining room for meals, encouragement to attend groups, distraction, provided positive reinforcement, Q 15 minute safety checks. Restraints/seclusion/emergency medication: None Justification of Continued Inpatient Treatment: Pt is depressed and endorsing SI. Pt needs crisis interruption with medication adjustment and management in a safe and therapeutic environment until stable.
[2020-12-17 08:00] VITALS: BP 93/50
[2020-12-17] MEDS: lisinopril 10 MG tablet PO SCH (08:00)
[2020-12-17] MEDS: apixaban 5mg tablet PO SCH ×2 (08:22→20:37)
[2020-12-17] MEDS: busPIRone 5mg tablet PO SCH ×3 (08:22→20:37)
--- NOTE | 2020-12-17 14:00 | NUR ---
Nursing Progress Note: Legal hold: Voluntary Client on voluntary status Report received from nurse with use of LUCIANA Steinberg RN Why are they here: Pt admitted on a 5150 for DTS. Pt self presented to ED reporting suicidal ideation, with a plan to cut herself. Pt had a miscarriage in 2019 and hx of depression. Pt has hx of suicide attempts and inpatient psych hospitalizations. Pt reported using alcohol daily and meth two days ago. Assessment What has happened this shift: Pt was up for breakfast today. Her Lisinopril 10 mg was held again today for a decreased BP of 93/50. Her HR was 68. Pt rated her depression today "just too high" She reported some intermittent passive SI this morning, Pt asked for something for anxiety after lunch, Atarax given 1350. Patient states that "it is just too much to think about being out there", referring a discharge plan. S/I, H/I: can not contract for safety A/VH: Pt denies. Sleep: Pt slept 10 hours last night per noc shift report. ADL's: Independent Group attendance: No Were meds taken: Yes Any med S/E: None noted or reported. Mental Status Exam Appearance: Clean, neat, dressed in green unit scrubs. Eye contact: Good. Behavior: Pleasant, cooperative, reads, isolative to self and room. Speech: Clear, audible, minimal. Mood: Depressed, anxious "I am bored, so I will keep busy by reading" Affect: Blunted Thought process: Linear Thought Content: She is staying a couple more days voluntarily. Cognition: A/O X 4 Insight: Fair Judgment: Fair Interventions PRN's used: Atrax @ 1350 Therapeutic interventions: 1:1 assessment, establishment of rapport, ensured contract for safety, therapeutic communication, active listening, encouraged pt to come to the dining room for meals, encouragement to attend groups, distraction, provided positive reinforcement, Q 15 minute safety checks. Restraints/seclusion/emergency medication: None Justification of Continued Inpatient Treatment: Patient continues sever depression despite treatment, kevin states "I just can't think about how to be safe if I discharged". Patient needs more time on medication. Addendum: 12/17/20 at 1649 by Flor Lopez RN 1604 patient requested a Ativan for sever anxiety, "her room mate was having a melt down". PRN Ativan 1 mg po given
[2020-12-17] MEDS: LORazepam 1 MG tablet PO PRN (16:04)
[2020-12-17 19:00] VITALS: BP 110/61
[2020-12-17] MEDS: sertraline 50mg tablet PO SCH (20:37)
[2020-12-17] MEDS: traZODone 50mg tablet PO PRN (20:45)
--- NOTE | 2020-12-18 02:41 | NUR ---
Nursing Progress Note Legal hold: 5270 Expires 01/10 Client on involuntary status for GD Report received from ROSALBA Still with use of SBAR Why are they here: Patient admitted to [facility] at on a 5150 for gravely disabled. Pt was found by police in the middle of the road asking strangers for "sexual favors". Pt is unable to provide for her basic needs and would likely end up walking into traffic or being taken advantage of by others if discharged. Pt has been noncompliant with meds. Pt has some delusions about her cheating on her with a prostitute but it was her husbands daughter, believing their food is poisoned. Patient has been spending money on his credit cards, sleeping in her car, and stopped showering. Pt has history of schizophrenia and bipolar. Pt is bilingual Armenian and Luxembourgish. Assessment What happened this shift: at shift change, pt found in bed sleeping, with open book in her hand S/I, H/I: Denies A/VH: Denies Sleep: see sleep intervention for hours slept this shift ADL's: Independent. Group attendance: Were Meds taken: yes Any med S/E: None reported or observed. Mental Status Exam Appearance: well-groomed; wearing green scubs Eye contact: Good. Behavior: isolates to room Speech: Clear, audible. Mood: Euthymic. Affect: Congruent with mood. Thought process: Calm Thought Content: Cognition: appropriate to questions asked Insight: Poor Judgment: Poor Interventions PRN's used: trazadone Therapeutic interventions: Provided 1:1 morning assessment with therapeutic communication and active listening, encouraged outside group, maintained Q 15 minute safety checks. Restraints/seclusion/emergency medication: N/A Justification of Continued Inpatient Treatment: Patient is unable to verbalize a safe discharge plan. She is resistant to treatment. She refuses to take PO medications as prescribed.
[2020-12-18] MEDS: lisinopril 10 MG tablet PO SCH (07:47)
[2020-12-18] MEDS: apixaban 5mg tablet PO SCH (07:47)
[2020-12-18] MEDS: busPIRone 5mg tablet PO SCH ×2 (07:47→12:31)
[2020-12-18 07:50] VITALS: BP 104/51
[2020-12-18] MEDS: hydrOXYzine 25 MG tablet PO PRN (09:40)
[2020-12-18] MEDS ORDERED: SERT-433 PO (11:54)
[2020-12-18] MEDS ORDERED: APIX5TAB3 PO (11:54)
[2020-12-18] MEDS ORDERED: LISI10TA27 PO (11:54)
[2020-12-18] MEDS ORDERED: HYDR-3686 PO (11:54)
[2020-12-18] MEDS ORDERED: BUSP10TA10 PO (11:54)
--- NOTE | 2020-12-18 13:51 | NUR ---
DISCHARGE NOTE: Pt discharged. Pt given paper Rx's. Pt was picked up by her ex-. Pt expressed understanding of her Rx's and discharge instructions, all belongings returned including POM from the pharmacy.
== END 2020-12-18 13:50 | disposition home or self-care (01) | DRG 751 ==
LOC: ADULT MH 20:25
PROVIDERS: ADMIT Psychiatry & Neurology Psychiatry; ATTEND Psychiatry & Neurology Psychiatry
DX: F33.2 Major depressive disorder, recurrent severe without psychotic features (principal); R45.851 Suicidal ideations; F15.10 Other stimulant abuse, uncomplicated; F41.9 Anxiety disorder, unspecified; I10 Essential (primary) hypertension; Z65.3 Problems related to other legal circumstances; Z79.01 Long term (current) use of anticoagulants; Z59.0 Homelessness; Z79.899 Other long term (current) drug therapy; Z56.0 Unemployment, unspecified; Z86.16 Personal history of COVID-19; Z86.718 Personal history of other venous thrombosis and embolism; Z87.440 Personal history of urinary (tract) infections; Z98.891 History of uterine scar from previous surgery; Z88.2 Allergy status to sulfonamides; Z88.1 Allergy status to other antibiotic agents
CPT/HCPCS: 36415; 80061; 83036; 87081; Q0177

== ENCOUNTER 2021-02-15 07:18 | Emergency (ER) | payer MEDICAID ==
[~2021-02-15] VITALS: Ht 157.5 cm; Wt 60.0 kg
[~2021-02-15 07:18] MED LIST changes: +BUSP10TA10 PO; -BUSP5TAB3 PO; -IBUP-1984 PO; -QUET-1 PO; +SERT-433 PO; -SERT50TA PO
[2021-02-15 08:12] LABS: BASOPHILS % (AUTO) 0.6 % (0-1); EOSINOPHILS # (AUTO) 0.2 X10'3 (0-0.9); EOSINOPHILS % (AUTO) 3.9 % (0-6); HEMATOCRIT 35.8 % (35.0-45.0); LYMPHOCYTES # (AUTO) 2.2 X10'3 (1.1-4.8); MEAN CORPUSCULAR HEMOGLOBIN 29.5 PG (27.0-31.0); MEAN CORPUSCULAR HGB CONC 33.5 g/dL (33.0-36.5); MEAN PLATELET VOLUME 8.4 FL (7.4-10.4); MONOCYTES # (AUTO) 0.4 X10'3 (0-0.9); MONOCYTES % (AUTO) 7.6 % (2-12); NEUTROPHILS # (AUTO) 2.5 X10'3 (1.8-7.7); NEUTROPHILS % (AUTO) 46.9 % (42-75); PLATELET COUNT 342 X10'3 (140-440); RED BLOOD COUNT 4.07 X10'6 (4.20-5.60); RED CELL DISTRIBUTION WIDTH 14.1 % (11.5-14.5); WHITE BLOOD COUNT 5.3 X10'3 (4.5-11.0)
[2021-02-15] MEDS ORDERED: ketorolac tromethamine 15mg/ml inj. IV ONE (08:15)
[2021-02-15 08:23] LABS: CLARITY,URINE CLEAR (Clear); COLOR,URINE STRAW (Yellow); GLUCOSE, URINE NEGATIVE (Neg); KETONES,URINE NEGATIVE (Neg); LEUKOCYTE ESTERASE ,URINE NEGATIVE (Neg); NITRITES, URINE NEGATIVE (Neg); OCCULT BLOOD,URINE NEGATIVE (Neg); PROTEIN,URINE NEGATIVE (Neg); URINE HCG NEGATIVE (NEG); UROBILINOGEN,URINE 0.2 E.U/dL (0.2-1.0)
[2021-02-15 08:24] VITALS: BP 123/69
[2021-02-15 08:27] LABS: URINE AMPHETAMINE SCREEN NEGATIVE (Neg); URINE BARBITUATE SCREEN NEGATIVE (Neg); URINE BENZODIAZEPINES SCREEN NEGATIVE (Neg); URINE CANNABINOID SCREEN NEGATIVE (Neg); URINE COCAINE SCREEN NEGATIVE (Neg); URINE METHADONE SCREEN NEGATIVE (Neg); URINE OPIATE SCREEN NEGATIVE (Neg); URINE PHENCYCLIDINE SCREEN NEGATIVE (Neg)
[2021-02-15 08:29] LABS: UA COLLECTION TYPE CLN CATCH MIDSTREAM
[2021-02-15 08:31] LABS: ALANINE AMINOTRANSFERASE 54 U/L (12-78); ALBUMIN 3.9 G/DL (3.4-5.0); ALBUMIN/GLOBULIN RATIO 1.1 (1.1-1.5); ALKALINE PHOSPHATASE 85 IU/L (46-116); ANION GAP 9 (8-16); ASPARTATE AMINO TRANSFERASE 25 U/L (10-37); BILIRUBIN,TOTAL 0.3 MG/DL (0.1-1.0); BLOOD UREA NITROGEN 16 MG/DL (7-18); BUN/CREATININE RATIO 21.3 (6.6-38.0); CALCIUM 8.6 MG/DL (8.5-10.1); CHLORIDE 105 MMOL/L (99-107); CREATININE 0.75 MG/DL (0.40-0.90); GLUCOSE 119 MG/DL (70-104); LIPASE 78 U/L (73-393); POTASSIUM 4.3 MMOL/L (3.5-5.1); SODIUM 139 MMOL/L (135-145); TOTAL PROTEIN 7.3 G/DL (6.4-8.2); eGFR 84 ML/MIN
[2021-02-15] MEDS ORDERED: IBUP-1985 PO (08:54)
== END 2021-02-15 08:58 | disposition home or self-care (01) ==
LOC: ER 07:19
DX: R10.9 Unspecified abdominal pain (principal); R30.0 Dysuria; I10 Essential (primary) hypertension; F41.9 Anxiety disorder, unspecified; F32.9 Major depressive disorder, single episode, unspecified; F20.9 Schizophrenia, unspecified; Z86.718 Personal history of other venous thrombosis and embolism; F15.90 Other stimulant use, unspecified, uncomplicated; F14.90 Cocaine use, unspecified, uncomplicated; F10.10 Alcohol abuse, uncomplicated; Z56.0 Unemployment, unspecified; Z88.2 Allergy status to sulfonamides; Z88.1 Allergy status to other antibiotic agents; Z79.01 Long term (current) use of anticoagulants; Z79.899 Other long term (current) drug therapy
CPT/HCPCS: 36415; 80053; 80305; 81003; 81025; 83690; 85025; 96374; 99283; J1885

== ENCOUNTER 2021-02-22 11:35 | Emergency (ER) | payer MEDICAID ==
[~2021-02-22] VITALS: Ht 157.5 cm; Wt 61.4 kg
[~2021-02-22 11:35] MED LIST changes: +IBUP-1985 PO
[2021-02-22 11:40] VITALS: BP 133/62
[2021-02-22 12:07] LABS: CLARITY,URINE CLEAR (Clear); COLOR,URINE STRAW (Yellow); GLUCOSE, URINE NEGATIVE (Neg); KETONES,URINE NEGATIVE (Neg); LEUKOCYTE ESTERASE ,URINE NEGATIVE (Neg); NITRITES, URINE NEGATIVE (Neg); OCCULT BLOOD,URINE NEGATIVE (Neg); PROTEIN,URINE NEGATIVE (Neg); UROBILINOGEN,URINE 0.2 E.U/dL (0.2-1.0)
[2021-02-22 12:08] LABS: UA COLLECTION TYPE CLN CATCH MIDSTREAM
[2021-02-22 12:09] LABS: URINE HCG NEGATIVE (NEG)
[2021-02-22 12:26] LABS: URINE AMPHETAMINE SCREEN NEGATIVE (Neg); URINE BARBITUATE SCREEN NEGATIVE (Neg); URINE BENZODIAZEPINES SCREEN NEGATIVE (Neg); URINE CANNABINOID SCREEN NEGATIVE (Neg); URINE COCAINE SCREEN NEGATIVE (Neg); URINE METHADONE SCREEN NEGATIVE (Neg); URINE OPIATE SCREEN POSITIVE (Neg); URINE PHENCYCLIDINE SCREEN NEGATIVE (Neg)
[2021-02-22] MEDS ORDERED: NAPR-56 PO (12:55)
== END 2021-02-22 13:31 | disposition home or self-care (01) ==
LOC: ER 11:35
DX: N83.201 Unspecified ovarian cyst, right side (principal); R10.32 Left lower quadrant pain; I10 Essential (primary) hypertension; F41.9 Anxiety disorder, unspecified; F32.9 Major depressive disorder, single episode, unspecified; F20.9 Schizophrenia, unspecified; F15.90 Other stimulant use, unspecified, uncomplicated; F14.90 Cocaine use, unspecified, uncomplicated; Z87.440 Personal history of urinary (tract) infections; Z86.718 Personal history of other venous thrombosis and embolism; Z72.89 Other problems related to lifestyle; Z56.0 Unemployment, unspecified; Z88.2 Allergy status to sulfonamides; Z88.1 Allergy status to other antibiotic agents; Z79.899 Other long term (current) drug therapy
CPT/HCPCS: 76856; 80305; 81003; 81025; 99284

== ENCOUNTER 2025-02-17 22:16 | Emergency (ER) | payer MEDICAID ==
[~2025-02-17] VITALS: Ht 157.5 cm; Wt 56.0 kg
--- NOTE | 2025-02-17 23:04 | ELECTROCARDIOGRAPH REPORT ---
[facility] Test Date: 2025-02-17 Test Time: 23:03:46 Pat Name: ELSA CORRAL Department: [facility] Patient ID: [id number] Room: Gender: F Cardiology Manager: : 1975 Requested By: MATTY PRASAD Order Number: [id number] Reading MD: Dr. Louis Figueroa Measurements Intervals [place] Rate: 131 P: 71 WV: 129 QRS: 51 QRSD: 84 T: 0 QT: 306 QTc: 452 Interpretive Statements Atrial-paced complexes Left atrial enlargement Anteroseptal infarct, old Nonspecific repol abnormality, diffuse leads Electronically Signed On 02-18-2025 17:29:[address] Louis Figueroa Please click the below link to view image of tracing.
[2025-02-17 23:08] LABS: MEAN PLATELET VOLUME 7.5 FL (7.4-10.4); RED CELL DISTRIBUTION WIDTH 18.6 % (11.5-14.5)
[2025-02-17 23:24] LABS: CREATININE 0.70 MG/DL (0.40-0.90); TOTAL CARBON DIOXIDE 19.7 MMOL/L (24-32); eCRCL 77 ML/MIN; eGFR 89 ML/MIN
[2025-02-17 23:32] LABS: ELLIPTOCYTES FEW; PLATELET ESTIMATE INCREASED
--- NOTE | 2025-02-18 00:03 | Physician Documentation ---
History of Present Illness ~ Chief Complaint: Wound Stated Complaint: BLEEDING FROM FEET Time Seen by MD: 23:52 Primary Medical Doctor: Jayce Amin Mode of Arrival: Ambulatory HPI Patient presents to the emergency room for evaluation of her bilateral feet. She is a paraplegic and while being pushing a wheelchair her feet were dragging on the ground causing bleeding. She is on Xarelto. She also endorses drinking significantly over the past couple of days and states she has not had any water. Tetanus within 5 years?: No (Didnt ask) Medication Reconciliation Allergies: Coded Allergies: Sulfa (Sulfonamide Antibiotics) (Verified Allergy, Unknown, 02/17/25) ciprofloxacin (Unverified Allergy, Unknown, 02/17/25) erythromycin base (Verified Allergy, Unknown, HIVES, 02/17/25) Uncoded Allergies: PEPPER (Allergy, Unknown, ANAPHYLACTIC, 08/26/18) Scheduled Apixaban (Eliquis), 1 TAB PO BID Buspirone HCl (Buspirone HCl), 1 TABLET PO TID Hydroxyzine Hcl* (Atarax*), 1 TAB PO Q8H Lisinopril (Lisinopril), 1 TAB PO DAILY Sertraline HCl (Sertraline HCl), 150 MG PO HS Scheduled PRN Ibuprofen (Ibuprofen), 1 TAB PO Q8H PRN for pain Past Medical History Past Medical History: Hypertension, UTI, Deep Vein Thrombosis, Anxiety, Depression, Schizophrenia Past Surgical History: no surgical history Patient History: Patient reports no known family medical history. Alcohol Use: Abuse Drug Use: methamphetamine, cocaine Lives with: Other Lives In: Home Occupation: unemployed Review of Systems ROS All review of systems negative except as per HPI Physical Exam Vital Signs: Temperature: 98.3, Source: Oral, Heart Rate: 139, Respiratory Rate: 16, BP: 189/119, Pulse Oximetry: 98, Weight: 56.000 Oxygen Flow Rate: 0 Physical Exam General: Patient is awake, alert, oriented x4 in no acute distress Head: Normocephalic and atraumatic. Eyes: Conjunctival normal. EOMI. PERRL. ENT: Mucous membranes dry. Neck: Supple, trachea is midline. Chest: Clear to auscultation bilaterally without rales, rhonchi, or wheezes. There is no accessory muscle use or retractions. Cardiac: RRR without murmurs, gallops, or rubs. Extremities: Abrasions noted to bilateral dorsum of toes with no active bleeding. Progress Results/Orders Results/Orders Orders - FAUSTINO CORADO MD Straight Cath For Urine Sample (02/17/25 22:54) Dressing Orders (02/18/25 00:05) Wound Care Orders (02/18/25 00:05) Toe(S) (02/18/25 00:24) Toe(S) (02/18/25 00:24) Cult Urine + [address] (02/18/25 02:08) Completed Orders - FAUSTINO CORADO MD Hcg, Ur Ql (02/17/25 22:54) Cbc/Diff (02/17/25 22:54) BMP (02/17/25 22:54) Lipase (02/17/25 22:54) CMP (02/17/25 22:54) Electrocardiogram (02/17/25 22:54) Normal Saline 1000ml (Sodium Chloride 10 (02/18/25 00:00) Ringers Solution, Lacted (Lactated Ringe (02/18/25 00:00) Potassium Cl Sr Tablet (K-Dur Tablet) (02/17/25 23:59) Bacitracin Ointment (Bacitracin Ointment (02/18/25 00:05) Toe(S) (02/18/25 00:24) Toe(S) (02/18/25 00:24) Ondansetron Inj. (Zofran 4mg/2ml Vial) (02/18/25 00:35) Metoclopramide Inj (Reglan Inj) (02/18/25 01:55) Diphenhydramine Inj (Benadryl Inj.) (02/18/25 01:55) Ua W/Microscopic, Cult If Ind (02/18/25 01:47) Medications Received in ER Medications (Trade) Dose Ordered Sig/Dian Route PRN Reason Start Time Stop Time Status Last Admin Dose Admin (sodium chloride 1000ml IV soln) 2,000 ml ONCE ONCE IVB 02/18/25 00:00 02/18/25 00:01 DC 02/18/25 00:29 2,000 ML (lactated ringers solution) 1,000 ml ONCE ONCE IV 02/18/25 00:00 02/18/25 00:08 DC 02/18/25 00:29 1,000 ML (K-DUR tablet) 40 meq ONCE STAT PO 02/17/25 23:59 02/18/25 00:08 DC 02/18/25 00:29 40 MEQ (bacitracin ointment) 1 applic ONCE ONCE TP 02/18/25 00:05 02/18/25 00:06 DC 02/18/25 00:29 1 APPLIC (Zofran 4mg/2ml vial) 4 mg ONCE ONCE IV 02/18/25 00:35 02/18/25 00:36 DC 02/18/25 00:38 4 MG (Reglan inj) 5 mg ONCE ONCE IV 02/18/25 01:55 02/18/25 01:56 DC 02/18/25 01:56 5 MG (Benadryl inj.) 25 mg ONCE ONCE IV 02/18/25 01:55 02/18/25 01:56 DC 02/18/25 01:56 25 MG Vital Signs 02/17/25 02/17/25 02/18/25 22:38 22:50 01:04 Temp 98.3 Pulse 139 103 Resp 18 16 12 B/P (MAP) 189/119 187/101 (129) Pulse Ox 98 98 O2 Flow Rate 0 0 Laboratory Tests Test 02/17/25 23:02 02/18/25 01:47 White Blood Count 7.6 Red Blood Count 3.94 L Hemoglobin 10.3 L Hematocrit 31.3 L Mean Corpuscular Volume 79.5 Mean Corpuscular Hemoglobin 26.0 L Mean Corpuscular Hemoglobin Concent 32.7 L Red Cell Distribution Width 18.6 H Platelet Count 621 H Mean Platelet Volume 7.5 Neutrophils (%) (Auto) 66.2 Lymphocytes (%) (Auto) 24.7 Monocytes (%) (Auto) 6.4 Eosinophils (%) (Auto) 2.1 Basophils (%) (Auto) 0.6 Neutrophils # (Auto) 5.0 Lymphocytes # (Auto) 1.9 Monocytes # (Auto) 0.5 Eosinophils # (Auto) 0.2 Basophils # (Auto) 0.0 CBC Comment Platelet Estimate Increased Red Blood Cell Morphology Perf Hypochromasia 1+ Basophilic Stippling Anisocytosis 2+ Microcytosis 1+ Tear Drop Cells Few Elliptocytes Few Sodium Level 125 L Potassium Level 3.2 L Chloride Level 91 L Carbon Dioxide Level 19.7 L Anion Gap 14 Blood Urea Nitrogen 2 L Creatinine 0.70 Estimated GFR/1.73 m2 89 BUN/Creatinine Ratio 2.9 L Glucose Level 188 H Calcium Level 9.2 Total Bilirubin 0.4 Aspartate Amino Transf (AST/SGOT) 19 Alanine Aminotransferase (ALT/SGPT) 39 Alkaline Phosphatase 127 H Total Protein 8.7 H Albumin 4.3 Globulin 4.4 H Albumin/Globulin Ratio 1.0 L Lipase 16 Chemistry Comments Urine Specimen Description [place] cath Urine Color Straw Urine Clarity Slightly cloudy Urine pH 6.0 Urine Specific [place] <=1.005 Urine Protein 30 H Urine Glucose (UA) 250 H Urine Ketones Negative Urine Occult Blood Moderate H Urine Nitrite Negative Urine Bilirubin Negative Urine Urobilinogen 0.2 Urine Leukocyte Esterase Negative Urine RBC 0-2 Urine WBC 5-10 H Urine Squamous Epithelial Cells Few Urine Bacteria 3+ Urine Yeast Moderate Urine Culture Indicated Indicated Volume Urine Centrifuged 10 ml Urine HCG, Qualitative Negative Urine Comment Microbiology Date/Time Source Procedure Growth Status 02/18/25 02:08 Urine [place] Cath Urine Culture - Preliminary Culture received. Resulted Medical Decision Making Findings Patient presents to the emergency room with bilateral foot injury and complaints of dehydration as per HPI. Differentials include but are not limited to abrasions, fractures, dehydration, acute kidney injury therefore emergent labs and imaging ordered. X-ray shows no obvious fracture. Wound care provided to her toes. Labs show as well as physical exam that the patient is significantly dehydrated and IV fluids has been administered and patient is beginning to feel better. Given location of wounds that has well as patient's paraplegic status a nd likely contaminated wounds despite our cleaning I will place her on empirical antibiotics Departure Disposition: HOME / SELF CARE / HOMELESS Impression: Primary Impression: Abrasion Additional Impression: Dehydration Condition: Fair Discharge Instructions: Abrasion, [id number], Dehydration, Adult, [id number] Additional Instructions: Call Wound Care tomorrow to arrange for follow up. We are faxing the referral over tonight. Call [phone]. Clean wounds gently with soap and water daily and keep covered with antibiotic ointment. Return for signs of infection Referrals: NO PRIMARY CARE PROVIDER (PCP) Prescriptions Cephalexin*Monohydrate* (Keflex*) 500 Mg Capsule 1 CAP PO Q12H for 10 Days, #20 CAP Prov: FAUSTINO CORADO MD 02/18/25 Signature Scribe Signature: No scribe Attestation: The note accurately reflects work and decisions made by me.Faustino Corado MD 02/18/25 03:28 FAUSTINO CORADO MD Feb 18, 2025 00:03
[2025-02-18] MEDS: potassium Cl 20 mEq SR tablet PO STA (00:29)
[2025-02-18] MEDS: bacitracin 15gm ointment TP ONE (00:29)
[2025-02-18] MEDS: normal saline 1000ML IV soln IVB ONE (00:29)
[2025-02-18] MEDS: ringers solution, lactated 1000ml IV soln IV ONE (00:29)
[2025-02-18] MEDS: ondansetron/PF 4mg/2ml inj IV ONE (00:38)
--- NOTE | 2025-02-18 00:40 | RADIOLOGY REPORT ---
CLINICAL INDICATION: toe pain TECHNIQUE: DI TOE(S) Comparison: None FINDINGS/IMPRESSION: : There is no evidence of acute fracture or dislocation. Bony demineralization. This slightly limits evaluation for acute osseous abnormality. Mild soft tissue swelling of the dorsum of the foot.
--- NOTE | 2025-02-18 00:44 | RADIOLOGY REPORT ---
CLINICAL INDICATION: BILATERAL TOES, PAIN TECHNIQUE: DI TOE(S) Comparison: None FINDINGS/IMPRESSION: : There is no evidence of acute fracture or dislocation. Bony demineralization which limits evaluation for acute osseous abnormality.
[2025-02-18] MEDS: metoclopramide 5 mg/ml inj IV ONE (01:56)
[2025-02-18 01:59] LABS: UA COLLECTION TYPE FOLEY CATH
[2025-02-18 02:00] LABS: LEUKOCYTE ESTERASE ,URINE NEGATIVE (Neg); NITRITES, URINE NEGATIVE (Neg); OCCULT BLOOD,URINE MODERATE (Neg)
[2025-02-18 02:02] LABS: URINE HCG NEGATIVE (NEG)
[2025-02-18 02:08] LABS: SQUAMOUS EPITHELIAL CELL,UR FEW /LPF (FEW); YEAST MODERATE /HPF (NEGATIVE)
[2025-02-18] MEDS ORDERED: CEPH-585 PO (03:27)
[2025-02-18 03:50] VITALS: BP 170/85; PULSE 100; RESP 17; TEMP 98.6; O2SAT 100
== END 2025-02-18 03:53 | disposition home or self-care (01) ==
LOC: ER 22:17
DX: S90.415A Abrasion, left lesser toe(s), initial encounter (principal); S90.414A Abrasion, right lesser toe(s), initial encounter; E86.0 Dehydration; F41.9 Anxiety disorder, unspecified; F32.A Depression, unspecified; F20.9 Schizophrenia, unspecified; I10 Essential (primary) hypertension; F15.90 Other stimulant use, unspecified, uncomplicated; Z88.1 Allergy status to other antibiotic agents; Z88.2 Allergy status to sulfonamides; Z88.8 Allergy status to other drugs, medicaments and biological substances; Z88.5 Allergy status to narcotic agent; Z79.899 Other long term (current) drug therapy; X58.XXXA Exposure to other specified factors, initial encounter; Y93.89 Activity, other specified; Y92.89 Other specified places as the place of occurrence of the external cause; Y99.8 Other external cause status
CPT/HCPCS: 36415; 73660; 80053; 81001; 81025; 83690; 85025; 87077; 87088; 87186; 93005; 96361; 96374; 96375; 99285; J1200; J2405; J2765; J7030; J7120; 85008; A6258; A6446